=== PATIENT | female | born 1945 | race Caucasian/White ===

== ENCOUNTER 2017-06-19 08:49 | Inpatient (IN) | payer MEDICARE ==
[~2017-06-19 08:49] MED LIST: Sodium Chloride 0.9% 1,000 ML BAG ONE
[2017-06-19 09:54] LABS: ALT (SGPT) 18 U/L (8-55); AST (SGOT) 20 U/L (5-34); Albumin 3.9 g/dL (3.4-4.8); Alkaline Phosphatase 83 U/L (40-150); Anion Gap 17 mmol/L (10-20); BUN (Urea Nitrogen) 11 mg/dL (9.8-20.1); Bilirubin, Total 0.6 mg/dL (0.2-1.2); Calc. Creatinine Clearance 0 mL/min (70-130); Calcium 9.9 mg/dL (7.8-10.44); Carbon Dioxide 23 mmol/L (23-31); Chloride 100 mmol/L (98-107); Estimated GFR-MDRD 52; Globulin 3.9 g/dL (2.4-3.5); Glucose 112 mg/dL (80-115); Potassium 3.8 mmol/L (3.5-5.1); Protein, Total 7.8 g/dL (6.0-8.3); Sodium 136 mmol/L (136-145)
[2017-06-19] MEDS ORDERED: Azithromycin 250 MG TAB ONE (09:57)
[2017-06-19] MEDS ORDERED: Benzonatate 100 MG CAP ONE (09:57)
--- NOTE | 2017-06-19 10:01 | RAD ---
PORTABLE CHEST: HISTORY: Fever. FINDINGS: The lungs are clear. No infiltrate seen on portable exam. Heart and mediastinum unremarkable. Vas cular markings normal. IMPRESSION: No acute process seen on portable exam. POS: [facility]
[2017-06-19 10:05] LABS: Manual Diff?? YES; Mean Corpuscular HGB CONC 33.9 g/dL (32.0-36.0); Mean Corpuscular Hemoglobin 33.2 pg (27.0-31.0); Mean Corpuscular Volume 97.8 fl (81.0-99.0); Mean Platelet Volume 8.8 fL (7.4-10.4); Platelet Count 261 thou/uL (130-400); RBC Distribution Width 13.2 % (11.5-14.5); Red Blood Cell (RBC) Count 4.23 mill/uL (4.20-5.40); White Blood Cell (WBC) Count 13.6 thou/uL (4.8-10.8)
[2017-06-19 10:06] LABS: Eosinophils 1 % (0-10); Lymphocytes 6 % (21-51); MDiff Complete? YES; Monocytes 5 % (0-10); PLT Morphology Comment Appears Adequate; RBC Morphology Normal
[2017-06-19 11:30] LABS: CKMB 0.4 ng/mL (0-6.6); Troponin I Less than 0.010 ng/mL (< 0.028)
[2017-06-19] MEDS ORDERED: Enoxaparin Sodium 30 MG/0.3 ML SYRINGE ONE (12:18)
[2017-06-19] MEDS ORDERED: Oseltamivir 75 MG CAP ONE (12:18)
[2017-06-19 12:40] LABS: Clarity Clear (Clear); Glucose, Urine (Dipstick) Negative (Negative); Leukocyte Small (Negative); Nitrite Negative (Negative); Protein, Urine (Dipstick) Negative (Neg-Trace); Specific Gravity, Urine 1.015 (1.005-1.030); pH, Urine 7.5 (5.0-9.0)
[2017-06-19 12:41] LABS: Bacteria/HPF Rare-Few HPF (None Seen); Bilirubin Negative (Negative); Blood, Urine Negative (Negative); RBC/HPF 0-3 HPF (0-3); Urobilinogen 0.2 mg/dL (0.2-1.0)
[2017-06-19] MEDS ORDERED: Ondansetron HCl/PF 4 MG/2 ML Vial SLOW IVP PRN (13:15)
[2017-06-19] MEDS ORDERED: Acetaminophen 325 MG TAB PO PRN (13:15)
[2017-06-19] MEDS ORDERED: Bisacodyl 5 MG TAB PO PRN (13:15)
[2017-06-19] MEDS ORDERED: HYDROcodone/Acetaminophen 5/325 mg Tablet PO PRN ×2 (13:15)
[2017-06-19] MEDS ORDERED: Sodium Chloride 0.9% 1,000 ML IV SCH (13:15)
[2017-06-19 13:37] VITALS: BMI 26.3
[2017-06-19] MEDS: Sodium Chloride 0.45% 1,000 ML IV SCH (21:52)
[2017-06-19] MEDS: clonazePAM 0.5 MG TAB PO SCH (21:54)
[2017-06-19] MEDS: Magnesium Oxide 400 MG TAB PO SCH (21:59)
[2017-06-19] MEDS: Nitrofurantoin Monohyd/M-Cryst 100 MG CAP PO SCH (22:02)
[2017-06-20] MEDS: Guaifenesin DM 100-10/5 ML UDCUP PO PRN ×3 (00:47→20:35)
--- NOTE | 2017-06-20 02:58 | HP ---
DATE OF ADMISSION: 06/19/2017 ATTENDING: Dr. Ivy PRIMARY CARE PHYSICIAN: Dr. Bonds in [place]. HISTORY OF PRESENT ILLNESS: Ms. Dodge is a very pleasant 71-year-old female who came into the [facility] ER today secondary to persistent acute febrile illness. Patient reports significant runny nose, congestion, cough and fever for the last 3 days that has progressed. Upon patient's presentation in the ER, patient's initial vital signs in the ER showed blood pressure 120/68 , pulse 111, respirations 22, temperature 101.1, O2 saturation 93% at room air. Initial evaluation showed positive ffor influenza B, with mild leukocytosis at 13,000 with no significant left shift noted. Electrolytes showed low normal sodium and potassium, BUN 11, creatinine 1.04 with estimated GFR 52. Chest x- ray was unremarkable. Urine leukocyte esterase small, with urine wbc 4-6. The patient received with IV hydration in the ER, the first dose of Tamiflu and she is also empirically treated with Zithromax IV. INTERIM HISTORY: The patient reports that she was having dysuria 3 days prior to the acute febrile illness noticed. She went to Urgent Care in [place] and was treated for UTI. Currently taking nitrofurantoin 100 mg b.i.d. Patient reports that the initial prescription was given every 6 hours and she started having some nausea without vomiting, so she went back to the usual dose of every 12 hours for which she tolerated well. Currently, denies any significant dysuria, frequency, urgency or gross hematuria. PAST MEDICAL HISTORY: 1. Multiple Sclerosis, followed by Dr. Kat Johnson for supportive management only. 2. Chronic pain syndrome followed by Dr. Vick for interventional pain management. 3. DJD. 4. Chronic right knee pain, received steroid injection from Dr. Holland. 5. Hypertension. 6. Gouty arthropathy. 7. Anxiety. 8. Insomnia. PAST SURGICAL HISTORY: Hysterectomy and cataract surgery. SOCIAL HISTORY: Patient is , lives by herself. She resides in [place], [place]. She denies history of tobacco use, alcohol use, or illicit drug use. ALLERGIES: AMOXICILLIN, BROMPHENIRAMINE, CELECOXIB, CLAVULANIC ACID, CLINDAMYCIN, INDOCIN, IODINE, SHELLFISH, ULTRAM, VICODIN, RIFAMPICIN, LEVAQUIN, NEURONTIN, LYRICA, SULFA, FLECTOR, SINGULAIR, MINOCYCLINE, TIZANIDINE, -AR CURRENT MEDICATIONS: Nitrofurantoin 100 mg p.o. b.i.d., allopurinol 300 mg p.o. daily, vitamin C/bioflavonoid 1 tablet daily, vitamin D3 one cap daily, magnesium 200 mg p.o. b.i.d., potassium chloride 9 mEq p.o. b.i.d., vitamin B complex 1 cap daily, vitamin E 400 units p.o. daily, clonazepam 2 mg p.o. at bedtime. REVIEW OF SYSTEMS: General: Reports fever, chills, night sweats, general weakness, fatigue, and loss of appetite. HEENT: Denies acute visual changes or hearing changes. RESPIRATORY: Reports nonproductive cough, and cold symptoms. No pain with breathing. No bloody sputum. No wheezes or breathing issues. Cardiac: Denies chest pain, dyspnea on exertion, paroxysmal nocturnal dyspnea, palpitations or syncope. Gastrointestinal: Reports some nausea without vomiting. No abdominal pain, diarrhea, constipation or diarrhea. Reports intermittent constipation. Genitourinary: As per HPI, otherwise denies incontinence. Musculoskeletal: Reports chronic intermittent arthralgia and joint swelling. Neurologic: Denies focal paralysis or paresthesia. Psychiatric: Denies hallucinations, depression or memory loss. Skin: No rashes, no lesions. LABORATORY DATA: WBC 13.6, hemoglobin 14.0, hematocrit 41.4, platelets 261, lymphocytes 6. Chemistry: Sodium 136, potassium 3.8, chloride 100, BUN 11, creatinine 1.04, glucose 112, calcium 9.9. Liver function tests within normal limits. CK 19, CK-MB 0.4, troponin less than 0.010. Beta natriuretic peptide 57.1, albumin 3.9. Urine as per HPI. EKG: normal sinus rhythm with left axis deviation, otherwise no acute ischemic changes,. as interpreted by the ER physician PHYSICAL EXAMINATION: VITAL SIGNS: Blood pressure 107/56, temperature 98.9, pulse 75, respirations 20 , O2 sats 93% at room air. Weight 144 pounds, height 5 feet 2 inches. GENERAL: The patient is awake, alert, acutely ill-looking, but nontoxic looking , generally weak looking, elderly, comfortably resting in bed, not in acute distress. HEENT: Normocephalic, atraumatic. PERRL, intact EOM. Anicteric sclera. Oral mucosa is dry. No lesion, boggy nasal mucosa. No nasal congestion. NECK: Supple. No LAD, no JVD, no bruit. CHEST: Normal excursion, clear to auscultation bilaterally. Cough occasionally during exam. CARDIAC: RRR. Normal S1 and S2. No murmurs. ABDOMEN: Flat, soft, normoactive bowel sounds, nondistended, nontender. No rebound, no guarding. Negative CVA tenderness bilaterally. EXTREMITIES: No edema, no cyanosis. SKIN: Good skin turgor and elasticity. No rashes, no lesions. PSYCHIATRIC: Appears calm with appropriate demeanor and affect. ASSESSMENT: 1. Influenza B. 2. History of hypertension, now with hypotension. 3. Acute urinary tract infection. 4. General Weakness. 5. Anxiety. 6. Gouty arthropathy. 7. History of multiple sclerosis. 8. History of chronic pain syndrome secondary to chronic low back pain/ degenerative joint disease and sciatica PLAN: 1. The patient is admitted to [facility] for medical and supportive management. We will continue IV hydration until the patient's oral consumption improves or becomes adequate. 2. We will continue antiviral therapy with Tamiflu. We will continue empiric treatment with antibiotic for possible superimposed bacterial infectious process. We will change the IV Zithromax to oral. Serial lab works. 3. We will continue home medications as modified per list. Her blood pressure as of now is in the low side, so we will hold her antihypertensive. ESTIMATED LENGTH OF STAY: 2-3 days. CODE STATUS: The patient reports DO NOT RESUSCITATE, DO NOT INTUBATE. The patient reports that she and her had made a living will and they are both into agreement of DNR/DNI and her kids are aware of this. DISPOSITION: Home once appropriate. Further recommendations depending on the hospital course. CELED
[2017-06-20 05:17] LABS: #Basophils 0.1 thou/uL (0.0-0.2); #Lymphocytes 1.3 thou/uL (1.20-3.40); #Monocytes 0.6 thou/uL (0.11-0.59); #Neutrophils 8.2 thou/uL (1.40-6.50); %Basophils 0.6 % (0.0-1.0); %Eosinophils 0.1 % (0.0-10.0); %Lymphocytes 12.6 % (21.0-51.0); %Monocytes 5.9 % (0.0-10.0); %Neutrophils 80.9 % (42.0-75.0); Hemoglobin 11.9 g/dL (12.0-16.0); Mean Corpuscular HGB CONC 34.4 g/dL (32.0-36.0); Mean Corpuscular Hemoglobin 33.8 pg (27.0-31.0); Mean Corpuscular Volume 98.3 fl (81.0-99.0); Mean Platelet Volume 8.3 fL (7.4-10.4); Platelet Count 211 thou/uL (130-400); RBC Distribution Width 13.3 % (11.5-14.5); Red Blood Cell (RBC) Count 3.53 mill/uL (4.20-5.40); White Blood Cell (WBC) Count 10.1 thou/uL (4.8-10.8)
[2017-06-20 05:29] LABS: Anion Gap 12 mmol/L (10-20); BUN (Urea Nitrogen) 11 mg/dL (9.8-20.1); Calc. Creatinine Clearance 65 mL/min (70-130); Calcium 8.7 mg/dL (7.8-10.44); Carbon Dioxide 23 mmol/L (23-31); Chloride 103 mmol/L (98-107); Estimated GFR-MDRD 68; Glucose 93 mg/dL (80-115); Potassium 3.9 mmol/L (3.5-5.1); Sodium 134 mmol/L (136-145)
[2017-06-20] MEDS: Enoxaparin Sodium 30 MG/0.3 ML SYRINGE SC SCH (05:37)
[2017-06-20] MEDS: Sodium Chloride 0.45% 1,000 ML IV SCH ×3 (06:12→15:27)
[2017-06-20] MEDS: Allopurinol 100 MG TAB PO SCH (08:30)
[2017-06-20] MEDS: Magnesium Oxide 400 MG TAB PO SCH ×2 (08:30→20:35)
[2017-06-20] MEDS: Vitami E (Dl,Tocopheryl Acet) 400 UNITS CAP PO SCH (08:30)
[2017-06-20] MEDS: Pantoprazole 40 MG VIAL IVP SCH (08:31)
[2017-06-20] MEDS: Nitrofurantoin Monohyd/M-Cryst 100 MG CAP PO SCH ×2 (08:32→20:39)
[2017-06-20] MEDS: VITAMIN B COMPLEX PO SCH (08:34)
[2017-06-20] MEDS ORDERED: Ascorbic Acid 500 mg Chewable Tablet PO SCH (09:00)
[2017-06-20] MEDS ORDERED: Azithromycin 250 MG TAB PO SCH ×2 (15:30→17:00)
[2017-06-20] MEDS ORDERED: Oseltamivir 75 MG CAP PO SCH (15:30)
[2017-06-20] MEDS: clonazePAM 0.5 MG TAB PO SCH (20:34)
[2017-06-20] MEDS: Oseltamivir 75 MG CAP PO SCH (20:34)
[2017-06-21] MEDS: Enoxaparin Sodium 30 MG/0.3 ML SYRINGE SC SCH (05:28)
[2017-06-21] MEDS: Sodium Chloride 0.45% 1,000 ML IV SCH (08:30)
[2017-06-21] MEDS: Allopurinol 100 MG TAB PO SCH (08:32)
[2017-06-21] MEDS: Magnesium Oxide 400 MG TAB PO SCH (08:32)
[2017-06-21] MEDS: Pantoprazole 40 MG VIAL IVP SCH (08:33)
[2017-06-21] MEDS: Vitami E (Dl,Tocopheryl Acet) 400 UNITS CAP PO SCH (08:33)
[2017-06-21] MEDS: Oseltamivir 75 MG CAP PO SCH (08:33)
[2017-06-21] MEDS: Nitrofurantoin Monohyd/M-Cryst 100 MG CAP PO SCH (08:33)
[2017-06-21] MEDS: VITAMIN B COMPLEX PO SCH (08:35)
[2017-06-21] MEDS ORDERED: Azithromycin 250 MG TAB PO SCH ×2 (09:00)
[2017-06-21] MEDS ORDERED: Ascorbic Acid 500 mg Chewable Tablet PO SCH (09:00)
[2017-06-21 13:01] VITALS: BP 110/56; TEMP 98.6
[2017-06-21] MEDS ORDERED: Sodium Chloride 0.9% 1,000 ML BAG ONE (13:39)
[2017-06-21] MEDS ORDERED: Sodium Chloride 0.45% 1,000 ML BAG ONE (13:39)
--- NOTE | 2017-06-21 22:52 | DIS ---
DATE OF ADMISSION: 06/19/2017 DATE OF DISCHARGE: 06/22/2017 ATTENDING: Belinda Ivy MD PRIMARY CARE PHYSICIAN: Dr. Bonds in [place]. REASON FOR ADMISSION: Acute febrile illness, general weakness. PRIMARY DIAGNOSES: 1. Influenza B infection 2. Acute UTI. 3. History of hypertension, now with hypotension. Blood pressure stable without antihypertensive. 4. General weakness, improved. SECONDARY DIAGNOSES: Gouty arthropathy, history of multiple sclerosis, history of chronic pain syndrome secondary to chronic low back pain, degenerative joint disease, and sciatica. Receives interventional pain management with Dr. Vick. DISPOSITION: Home. CONDITION ON DISCHARGE: Stable. DIET: Regular. ACTIVITY: Ad melisa. FOLLOWUP: Follow up with PCP or Dr. Ivy at [facility] in 1 week or sooner with concerns. Continue home blood pressure monitoring at least once a day and keep blood pressure diary. To bring blood pressure diary to the clinic upon followup. ER warnings. HISTORY OF PRESENT ILLNESS AND HOSPITAL COURSE: Ms. Dodge is a very pleasant 71 -year-old female who presented to the [facility] ER on 06/19/2017 secondary to persistent fever for the last 3 days. This is associated with cold symptoms including runny nose, congestion, and mild cough. Her initial evaluation in the ER was significant for positive influenza B. Her x-ray was unremarkable. Her urine was positive for mild pyuria. The patient was admitted to [facility] for supportive medical management. Patient was treated with Tamiflu and empirically treated with Zithromax to cover for possible superimposed bronchitis. The patient reports that she was recently treated with UTI as outpatient 3 days prior to admission and she was placed on nitrofurantoin. Nitrofurantoin was completed during her hospital stay. She was voiding freely with no significant GUT symptoms while in the hospital. During her hospital course, patient has been febrile free and clinically improving in a slow manner. Her appetite is almost back to her baseline prior to discharge. She has been febrile free for the last 3 days. The patient was able to bathe herself and has been ambulatory prior to discharge. On 06/22/2017 , patient was adamant to go home. Her daughter who came from out of town is here to pick her up and is comfortable to take the patient back home. LABORATORY AND DIAGNOSTIC DATA: On 06/19/2017, WBC 13.6, hemoglobin 14, hematocrit 41.4, platelets 261. CBC on 06/20/2017, WBC 10.1, hemoglobin 11.9, hematocrit 34.7, and platelets 211. Chemistry on 06/20/2017, sodium 134, potassium 3.9, BUN 11, creatinine 0.83, estimated GFR of 68, upon admission 52. Chest x-ray on 06/19/2017, no acute process on portable exam. Vital signs prior to discharge, blood pressure 110/56, temperature 98.6, pulse 78, respirations 18, O2 saturation 95%, weight 144 pounds, height 5 feet 2 inches. MTDD
== END 2017-06-21 15:46 | disposition home or self-care (01) | DRG 194 ==
LOC: MADERS 08:49 → MADMS 11:36
PROVIDERS: ADMIT Family Medicine; ATTEND Family Medicine
DX: J10.1 Influenza due to other identified influenza virus with other respiratory manifestations (principal); N39.0 Urinary tract infection, site not specified; I95.9 Hypotension, unspecified; G35 Multiple sclerosis; E87.6 Hypokalemia; I10 Essential (primary) hypertension; M10.9 Gout, unspecified; G89.4 Chronic pain syndrome; M19.90 Unspecified osteoarthritis, unspecified site; M54.30 Sciatica, unspecified side
CPT/HCPCS: 36415; 71010; 80048; 80053; 81001; 82550; 82553; 83880; 84484; 85025; 87040; 87070; 87081; 87086; 87205; 87430; 93005; 94760; 96372; A4216; C9113; J1650; J7050

== ENCOUNTER 2017-06-28 11:54 | Outpatient (CLI) | payer MEDICARE ==
[2017-06-28 12:55] LABS: #Basophils 0.1 thou/uL (0.0-0.2); #Lymphocytes 1.7 thou/uL (1.20-3.40); #Monocytes 0.5 thou/uL (0.11-0.59); #Neutrophils 6.1 thou/uL (1.40-6.50); %Basophils 1.7 % (0.0-1.0); %Eosinophils 0.4 % (0.0-10.0); %Lymphocytes 20.1 % (21.0-51.0); %Monocytes 6.3 % (0.0-10.0); %Neutrophils 71.6 % (42.0-75.0); Hemoglobin 13.8 g/dL (12.0-16.0); Mean Corpuscular HGB CONC 31.7 g/dL (32.0-36.0); Mean Corpuscular Volume 100.8 fl (81.0-99.0); Mean Platelet Volume 8.5 fL (7.4-10.4); Platelet Count 316 thou/uL (130-400); RBC Distribution Width 14.1 % (11.5-14.5); Red Blood Cell (RBC) Count 4.31 mill/uL (4.20-5.40); White Blood Cell (WBC) Count 8.5 thou/uL (4.8-10.8)
[2017-06-28 13:13] LABS: ALT (SGPT) 16 U/L (8-55); AST (SGOT) 31 U/L (5-34); Albumin 4.1 g/dL (3.4-4.8); Alkaline Phosphatase 64 U/L (40-150); Anion Gap 17 mmol/L (10-20); BUN (Urea Nitrogen) 19 mg/dL (9.8-20.1); Bilirubin, Total 0.5 mg/dL (0.2-1.2); Calc. Creatinine Clearance 0 mL/min (70-130); Calcium 10.1 mg/dL (7.8-10.44); Carbon Dioxide 24 mmol/L (23-31); Cardiac Risk 4.7 (Less than 4.5); Chloride 104 mmol/L (98-107); Cholesterol 185 mg/dl (< 200 Desired); Estimated GFR-MDRD 50; Globulin 4.2 g/dL (2.4-3.5); Glucose 89 mg/dL (80-115); HDL Cholesterol 39 mg/dL (>60 Neg Risk); LDL Cholesterol, Calculated 130 mg/dL; Protein, Total 8.3 g/dL (6.0-8.3); Sodium 140 mmol/L (136-145); Triglycerides 79 mg/dL (Less than 150)
[2017-06-28 13:33] LABS: Free T4 (Free Thyroxine) 1.03 ng/dL (0.70-1.48); Thyroid Stimulating Hormone 1.7882 uIU/mL (0.35-4.94)
[2017-06-28 16:21] LABS: Vitamin D, 25 Hydroxy 40.2 ng/ml (> 30.0)
[2017-06-28 18:47] LABS: Vitamin B12 Greater than 2000 pg/mL (211-911)
== END 2017-06-28 11:55 | disposition home or self-care (01) ==
LOC: MADLABBHPM 11:54
PROVIDERS: ATTEND Family Medicine
DX: E53.8 Deficiency of other specified B group vitamins (principal); E55.9 Vitamin D deficiency, unspecified; I10 Essential (primary) hypertension
CPT/HCPCS: 80053; 80061; 82306; 82607; 82746; 84439; 84443; 85025

== ENCOUNTER 2017-08-07 08:33 | Emergency (ER) | payer MEDICARE | END 2017-08-07 09:03 | disposition home or self-care (01) | LOC: MADERS 08:33 | DX: B02.9 Zoster without complications (principal); Z79.899 Other long term (current) drug therapy | CPT/HCPCS: 99282 ==

== ENCOUNTER 2017-11-22 09:15 | Outpatient (CLI) | payer MEDICARE ==
[2017-11-22 11:09] LABS: Anion Gap 16 mmol/L (10-20); BUN (Urea Nitrogen) 13 mg/dL (9.8-20.1); Calc. Creatinine Clearance 0 mL/min (70-130); Calcium 9.4 mg/dL (7.8-10.44); Carbon Dioxide 27 mmol/L (23-31); Chloride 102 mmol/L (98-107); Estimated GFR-MDRD 62; Glucose 87 mg/dL (83-110); Potassium 3.9 mmol/L (3.5-5.1); Sodium 141 mmol/L (136-145); Uric Acid 4.7 mg/dL (2.6-6.0)
== END 2017-11-22 09:16 | disposition home or self-care (01) ==
LOC: MADLABBHPM 09:15
PROVIDERS: ATTEND Family Medicine
DX: Z13.9 Encounter for screening, unspecified (principal); M1A.00X0 Idiopathic chronic gout, unspecified site, without tophus (tophi)
CPT/HCPCS: 36415; 80048; 84550

== ENCOUNTER 2019-11-24 08:56 | Outpatient (CLI) | payer MEDICARE | END 2019-11-24 08:57 | disposition home or self-care (01) | LOC: MADLABBHPM 08:56 | PROVIDERS: ATTEND Family Medicine | DX: E79.0 Hyperuricemia without signs of inflammatory arthritis and tophaceous disease (principal) | CPT/HCPCS: 36415; 84550 ==

== ENCOUNTER 2021-01-27 12:34 | Outpatient (CLI) | payer MEDICARE, OTHER ==
[2021-01-27 13:14] LABS: Bilirubin Negative (Negative); Blood, Urine Negative (Negative); Glucose, Urine (Dipstick) Negative (Negative); INR-International Normal Ratio 0.9; Ketone, Urine Negative (Negative); Leukocyte Small (Negative); Nitrite Positive (Negative); Protein, Urine (Dipstick) Negative (Neg-Trace); Prothrombin Time 11.8 sec (12.0-14.7); Specific Gravity, Urine 1.015 (1.005-1.030); Urobilinogen 0.2 mg/dL (Less than 2); pH, Urine 5.5 (5.0-9.0)
[2021-01-27 13:25] LABS: ALT (SGPT) 18 U/L (8-55); AST (SGOT) 22 U/L (5-34); Albumin 4.6 g/dL (3.4-4.8); Alkaline Phosphatase 86 U/L (40-110); Anion Gap 17 mmol/L (10-20); BUN (Urea Nitrogen) 32 mg/dL (9.8-20.1); Bilirubin, Total 0.5 mg/dL (0.2-1.2); Calc. Creatinine Clearance 0 mL/min (70-130); Calcium 9.5 mg/dL (7.8-10.44); Carbon Dioxide 25 mmol/L (23-31); Chloride 102 mmol/L (98-107); Globulin 3.3 g/dL (2.4-3.5); Glucose 96 mg/dL (83-110); Potassium 3.7 mmol/L (3.5-5.1); Protein, Total 7.9 g/dL (5.8-8.1); Sodium 140 mmol/L (136-145)
[2021-01-27 13:31] LABS: Clarity Hazy (Clear); RBC/HPF 0-3 HPF (0-3)
[2021-01-27 13:32] LABS: Bacteria/HPF 3+ HPF (None Seen)
[2021-01-27 13:33] LABS: #Basophils 0.1 thou/uL (0.0-0.2); #Eosinphils 0.2 thou/uL (0.0-0.7); #Lymphocytes 2.6 thou/uL (1.20-3.40); #Monocytes 0.6 thou/uL (0.11-0.59); #Neutrophils 5.6 thou/uL (1.40-6.50); %Basophils 1.5 % (0.0-1.0); %Eosinophils 1.8 % (0.0-10.0); %Lymphocytes 28.4 % (21.0-51.0); %Monocytes 6.3 % (0.0-10.0); %Neutrophils 62.1 % (42.0-75.0); Hemoglobin 14.3 g/dL (12.0-16.0); Mean Corpuscular HGB CONC 32.1 g/dL (32.0-36.0); Mean Corpuscular Volume 106.1 fL (78.0-98.0); Mean Platelet Volume 11.3 fL (7.4-10.4); Platelet Count 212 thou/uL (130-400); RBC Distribution Width 14.1 % (11.5-14.5); Red Blood Cell (RBC) Count 4.19 mill/uL (4.20-5.40)
[2021-01-27 13:55] LABS: Anisocytosis SLIGHT = 6-15 cells (100X) (0-5/hpf)
[2021-01-27 13:56] LABS: Platelet Morphology Comment Appears Adequate
== END 2021-01-27 12:35 | disposition home or self-care (01) ==
LOC: MADRAD 12:34
PROVIDERS: ATTEND Family Medicine
DX: Z01.818 Encounter for other preprocedural examination (principal)
CPT/HCPCS: 36415; 71046; 80053; 81001; 85025; 85610; 87077; 87086; 87186